=== PATIENT | female | born 1995 | race Caucasian/White ===

== ENCOUNTER 2021-09-09 23:43 | Emergency (ER) | payer SELFPAY ==
[~2021-09-09] VITALS: Ht 170.2 cm; Wt 117.9 kg
[2021-09-09 23:45] VITALS: BP 112/50
--- NOTE | 2021-09-10 00:22 | NUR ---
PT TAKEN TO BED 4
--- NOTE | 2021-09-10 00:25 | NUR ---
COVERING PRIMARY RN FOR LUNCH RELIEF. SEE COMPLETE ASSESSMENT
--- NOTE | 2021-09-10 00:47 | NUR ---
ERMD AT BEDSIDE.
[2021-09-10] MEDS ORDERED: FAMOTIDINE 20 MG/2 ML VIAL IVP ONE (00:50)
[2021-09-10] MEDS ORDERED: diphenhydrAMINE 50 MG/ML VIAL IVP ONE (00:50)
[2021-09-10] MEDS ORDERED: DEXAMETHASONE 10 MG/ML VIAL IVP ONE (00:50)
[2021-09-10] MEDS ORDERED: FAMOTIDINE 20 MG TAB PO ONE (01:10)
--- NOTE | 2021-09-10 01:40 | NUR ---
HIVES ARE CLEARING UP.
--- NOTE | 2021-09-10 02:25 | NUR ---
Note emily in EDM - 09/10/21 at 0253 by MED Patient discharged with v/s stable. Written and verbal after care instructions given and explained. Patient alert, oriented and verbalized understanding of instructions. Ambulatory with steady gait. All questions addressed prior to discharge. ID band removed. Patient advised to follow up with PMD. Rx of AMOX-CLAV given. Patient educated on indication of medication including possible reaction and side effects. Opportunity to ask questions provided and answered.
[2021-09-10 02:36] VITALS: BP 112/50
--- NOTE | 2021-09-10 02:36 | NUR ---
Patient discharged with v/s stable. Written and verbal after care instructions given and explained. Patient verbalized understanding. Ambulatory with steady gait. All questions addressed prior to discharge. Advised to follow up with PMD.
== END 2021-09-10 02:36 | disposition home or self-care (01) ==
LOC: MED 23:43
DX: L50.0 Allergic urticaria (principal); R11.0 Nausea
CPT/HCPCS: 99284; J3490; Q0163; J1100; J1200; J7030

== ENCOUNTER 2021-09-30 10:55 | Emergency (ER) | payer SELFPAY ==
[~2021-09-30] VITALS: Ht 170.2 cm; Wt 113.9 kg
[2021-09-30 11:03] VITALS: BP 127/72
--- NOTE | 2021-09-30 11:58 | NUR ---
PT AMBULATED TO ER BED 4
--- NOTE | 2021-09-30 12:05 | NUR ---
26 Y/O FEMAL BIS SELF C/O LUQ PAIN W/ RADIATES O BREAT AREA X1 WK. PAIN IS INTERMITTENT RATED 6/10. PT DENIES N/V/D. PT DENIES SOB, CHEST PAIN, TRAUMA. PT DENIES DYSURIA/ HEMATURIA. PT IS ALERT AND ORIENTED X4. BED IN LOWEST POSITION. BED RAILX1. PMH: DENIES ALLERGIES: ALMONDS Addendum: 09/30/21 at 1644 by HUSEYIN 26 Y/O FEMAL BIS SELF C/O LUQ PAIN W/ RADIATES TO BREAST AREA X1 WK. PAIN IS INTERMITTENT RATED 6/10. PT DENIES N/V/D. PT DENIES SOB, CHEST PAIN, TRAUMA. PT DENIES DYSURIA/ HEMATURIA. PT IS ALERT AND ORIENTED X4. BED IN LOWEST POSITION. BED RAILX1. PMH: DENIES ALLERGIES: ALMONDS
[2021-09-30 12:20] LABS: BASOPHILS # (AUTO) 0.1 K/uL (0.00-0.22); BASOPHILS % (AUTO) 0.8 % (0.0-2.0); EOSINOPHILS # (AUTO) 0.8 K/uL (0-0.4); EOSINOPHILS % (AUTO) 7.5 % (0.0-4.0); HEMATOCRIT 42.6 % (36-48); HEMOGLOBIN 13.9 g/dL (12.0-16.0); LYMPHOCYTES # (AUTO) 4.2 K/uL (2.5-16.5); LYMPHOCYTES % (AUTO) 39.9 % (20.5-51.1); MEAN CORPUSCULAR HEMOGLOBIN 27 pg (27-31); MEAN CORPUSCULAR HGB CONC 33 g/dL (33-37); MEAN CORPUSCULAR VOLUME 83.5 fL (80-94); MONOCYTES # (AUTO) 0.7 K/uL (0.8-1.0); MONOCYTES % (AUTO) 6.1 % (1.7-9.3); NEUTROPHILS # (AUTO) 4.9 K/uL (1.8-7.7); NEUTROPHILS % (AUTO) 45.7 % (42.2-75.2); PLATELET COUNT (AUTO) 329 K/uL (140-450); RED CELL DISTRIBUTION WIDTH 14.6 % (11.6-13.7); WHITE BLOOD COUNT (AUTO) 10.6 K/uL (4.8-10.8)
[2021-09-30 12:24] LABS: ALBUMIN 3.5 g/dL (3.4-5.0); CREATININE 0.7 mg/dL (0.6-1.3); TOTAL BILIRUBIN 0.5 mg/dL (0.0-1.0)
[2021-09-30] MEDS ORDERED: NAPR-54 PO (12:33)
[2021-09-30] MEDS ORDERED: LID5T TP (12:33)
[2021-09-30] MEDS ORDERED: CEPH-588 PO (12:37)
--- NOTE | 2021-09-30 13:06 | NUR ---
Patient discharged with v/s stable. Written and verbal after care instructions given and explained. Patient alert, oriented and verbalized understanding of instructions. Ambulatory with steady gait. All questions addressed prior to discharge. ID band removed. Patient advised to follow up with PMD. Rx of KEFLEX, LIDODERM, NAPROSYN given. Patient educated on indication of medication including possible reaction and side effects. Opportunity to ask questions provided and answered.
== END 2021-09-30 13:06 | disposition home or self-care (01) ==
LOC: MED 10:55
DX: S39.011A Strain of muscle, fascia and tendon of abdomen, initial encounter (principal); S29.011A Strain of muscle and tendon of front wall of thorax, initial encounter; Z98.890 Other specified postprocedural states; Z79.2 Long term (current) use of antibiotics; Z79.899 Other long term (current) drug therapy; Z79.1 Long term (current) use of non-steroidal anti-inflammatories (NSAID); Z91.018 Allergy to other foods; X58.XXXA Exposure to other specified factors, initial encounter; Y92.89 Other specified places as the place of occurrence of the external cause; Y93.89 Activity, other specified; Y99.8 Other external cause status
CPT/HCPCS: 36415; 80053; 81002; 81025; 83690; 85025; 99283

== ENCOUNTER 2023-09-28 21:43 | Emergency (ER) | payer MEDICAID, OTHER ==
[~2023-09-28] VITALS: Ht 167.6 cm; Wt 158.8 kg
[~2023-09-28 21:43] MED LIST: CEPH-588 PO; LID5T TP; NAPR-337 PO
[2023-09-28 22:25] VITALS: BP 135/90; PULSE 68; RESP 18; TEMP 98; O2SAT 98
[2023-09-29] MEDS ORDERED: DICYCLOMINE HCL LIQUID 10 MG/5 ML UDC ONE (01:32)
[2023-09-29] MEDS ORDERED: ALUMINUM HYD/MAG/SIMETHICONE 30 ML UDC ONE (01:32)
[2023-09-29] MEDS: DICYCLOMINE HCL LIQUID 20 MG, ALUMINUM HYD/MAG/SIMETHICONE 30 ML, LIDOCAINE VISCOUS 2% ... PO ONE (01:34)
[2023-09-29 01:40] LABS: BASOPHILS # (AUTO) 0.1 K/uL (0.00-0.22); BASOPHILS % (AUTO) 0.8 % (0.0-2.0); EOSINOPHILS # (AUTO) 0.6 K/uL (0-0.4); EOSINOPHILS % (AUTO) 4.8 % (0.0-4.0); HEMATOCRIT 40.1 % (36-48); LYMPHOCYTES # (AUTO) 5.3 K/uL (2.5-16.5); MEAN CORPUSCULAR HEMOGLOBIN 27 pg (27-31); MEAN CORPUSCULAR HGB CONC 32 g/dL (33-37); MEAN CORPUSCULAR VOLUME 82.7 fL (80-94); MONOCYTES # (AUTO) 0.7 K/uL (0.8-1.0); MONOCYTES % (AUTO) 5.4 % (1.7-9.3); NEUTROPHILS # (AUTO) 5.7 K/uL (1.8-7.7); PLATELET COUNT (AUTO) 321 K/uL (140-450); RED BLOOD CELL COUNT(AUTO) 4.85 MIL/uL (4.20-5.40); RED CELL DISTRIBUTION WIDTH 15.1 % (11.6-13.7); WHITE BLOOD COUNT (AUTO) 12.4 K/uL (4.8-10.8)
[2023-09-29 01:54] LABS: ALBUMIN 3.9 g/dL (3.4-5.0); ANION GAP 12.3 (8-16); CARBON DIOXIDE 27.5 mmol/L (21-32); CREATININE 0.8 mg/dL (0.6-1.3); POTASSIUM 3.8 mmol/L (3.5-5.1); TOTAL BILIRUBIN 0.4 mg/dL (0.0-1.0); TOTAL PROTEIN, SERUM 7.8 g/dL (6.4-8.2)
[2023-09-29] MEDS ORDERED: MAG-27 PO (04:28)
== END 2023-09-29 04:40 | disposition home or self-care (01) ==
LOC: MED 21:43
DX: R10.12 Left upper quadrant pain (principal); Z79.899 Other long term (current) drug therapy
CPT/HCPCS: 36415; 80053; 81025; 83690; 85025; 99284

== ENCOUNTER 2024-02-09 10:50 | Emergency (ER) | payer OTHER ==
[~2024-02-09] VITALS: Ht 167.6 cm; Wt 162.2 kg
[~2024-02-09 10:50] MED LIST changes: +MAG-27 PO
[2024-02-09 11:09] VITALS: BP 132/83; PULSE 58; RESP 19; TEMP 98.2; O2SAT 100
[2024-02-09] MEDS ORDERED: IBUP-2213 PO (13:04)
[2024-02-09 13:12] VITALS: BP 128/82; PULSE 54; RESP 19; TEMP 98.2; O2SAT 100
== END 2024-02-09 13:12 | disposition home or self-care (01) ==
LOC: MED 10:50
DX: R07.89 Other chest pain (principal); Z79.899 Other long term (current) drug therapy
CPT/HCPCS: 71045; 81025; 93005; 99283

== ENCOUNTER 2024-02-12 15:22 | Emergency (ER) | payer OTHER ==
[~2024-02-12] VITALS: Ht 167.6 cm; Wt 159.3 kg
[~2024-02-12 15:22] MED LIST changes: +IBUP-2213 PO
[2024-02-12 16:03] VITALS: BP 146/73; PULSE 53; RESP 18; TEMP 97.3; O2SAT 100
[2024-02-12] MEDS ORDERED: ACET-8905 PO (17:15)
== END 2024-02-12 17:30 | disposition home or self-care (01) ==
LOC: MED 15:22
DX: R07.89 Other chest pain (principal); F12.90 Cannabis use, unspecified, uncomplicated; Z98.84 Bariatric surgery status; Z79.899 Other long term (current) drug therapy
CPT/HCPCS: 93005; 99283

== ENCOUNTER 2024-03-01 19:01 | Emergency (ER) | payer OTHER ==
[~2024-03-01] VITALS: Ht 167.6 cm; Wt 158.8 kg
[~2024-03-01 19:01] MED LIST changes: +ACET-8905 PO
[2024-03-01 19:09] VITALS: BP 137/97; PULSE 77; RESP 20; TEMP 97.4; O2SAT 99
[2024-03-01] MEDS ORDERED: ONDA-188 SL (20:23)
[2024-03-01] MEDS ORDERED: ACET500T99 PO (20:23)
[2024-03-01] MEDS: ACETAMINOPHEN EXTRA STRENGTH 500 MG TAB PO ONE (20:43)
[2024-03-01] MEDS: ONDANSETRON 4 MG ODT PO ONE (20:45)
[2024-03-01 20:58] VITALS: BP 137/97; PULSE 77; RESP 20; TEMP 97.4; O2SAT 99
== END 2024-03-01 20:55 | disposition home or self-care (01) ==
LOC: MED 19:01
DX: K80.20 Calculus of gallbladder without cholecystitis without obstruction (principal); Z98.890 Other specified postprocedural states; Z79.899 Other long term (current) drug therapy
CPT/HCPCS: 99284; Q0162